=== PATIENT | female | born 1955 | race Caucasian/White ===

== ENCOUNTER 2020-10-01 10:41 | Inpatient (IN) | payer OTHER ==
[~2020-10-01] VITALS: Ht 165.1 cm; Wt 72.6 kg
[2020-10-01] MEDS ORDERED: WELLBUTRIN XL300 M1 PO (22:27)
[2020-10-01] MEDS ORDERED: LANSOPRAZOLE30 MG PO (22:28)
[2020-10-01] MEDS ORDERED: AMLODIPINE BESYL5 MG PO (22:28)
[2020-10-01] MEDS ORDERED: TRAMADOL HCL50 MG PO (22:30)
[2020-10-01] MEDS ORDERED: PLAVIX 75 MG TA75 MG PO (22:35)
[2020-10-01] MEDS ORDERED: VITAMIN D 3 (22:35)
[2020-10-01] MEDS ORDERED: ALLERGY RELIEF25 M1 PO (22:36)
[2020-10-01] MEDS ORDERED: ZINC50 M2 PO (22:37)
[2020-10-01] MEDS ORDERED: CALCIUM 600 +1 EA13 PO (22:38)
[2020-10-01] MEDS ORDERED: ZOFRAN 4 MG TAB4 MG PO (22:39)
[2020-10-01] MEDS ORDERED: TRIAMTERENE-HC1 EAC1 PO (22:40)
[2020-10-01] MEDS ORDERED: MELOXICAM15 MG PO (22:41)
[2020-10-01] MEDS ORDERED: FLUTICASONE PROPIONA (22:44)
[2020-10-02 09:13] LABS: HEMOGLOBIN 11.9 gm/dl (12.3-15.3); RED BLOOD COUNT 3.87 M/UL (4.00-5.10); WHITE BLOOD COUNT 10.3 K/UL (4.5-11.0)
[2020-10-03 06:20] LABS: HEMOGLOBIN 12.1 gm/dl (12.3-15.3); RED BLOOD COUNT 3.99 M/UL (4.00-5.10)
[2020-10-03 06:21] LABS: WHITE BLOOD COUNT 6.1 K/UL (4.5-11.0)
[2020-10-03 07:05] LABS: BUN/CREATININE RATIO 13 (0-10)
[2020-10-03] MEDS ORDERED: KEPPRA 500 MG500 MG PO (11:10)
[2020-10-03] MEDS ORDERED: ASPIRIN EC81 MG PO (11:10)
== END 2020-10-03 17:32 | disposition home or self-care (01) | DRG 92 ==
LOC: MED SURG 4 22:07
PROVIDERS: Internal Medicine; ADMIT Hospitalist
PROC: 4A00X4Z Measurement of Central Nervous Electrical Activity, External Approach (ICD-10-PCS; principal; 2020-10-02)
DX: Q04.8 Other specified congenital malformations of brain (principal); J98.11 Atelectasis; E87.2 Acidosis; R56.9 Unspecified convulsions; Z96.643 Presence of artificial hip joint, bilateral; I10 Essential (primary) hypertension; F39 Unspecified mood [affective] disorder; E87.6 Hypokalemia; M19.90 Unspecified osteoarthritis, unspecified site; Z90.49 Acquired absence of other specified parts of digestive tract; Z90.710 Acquired absence of both cervix and uterus; Z83.3 Family history of diabetes mellitus; Z82.49 Family history of ischemic heart disease and other diseases of the circulatory system
CPT/HCPCS: 36415; 70553; 71045; 80048; 83605; 83880; 84132; 85027; 93005; 95819; A9577; J1953

== ENCOUNTER → 2020-10-08 | Outpatient (CLI) | payer OTHER ==
[~2020-10-08] MED LIST: ALLERGY RELIEF25 M1 PO; AMLODIPINE BESYL5 MG PO; ASPIRIN EC81 MG PO; CALCIUM 600 +1 EA13 PO; FLUTICASONE PROPIONA; KEPPRA 500 MG500 MG PO; LANSOPRAZOLE30 MG PO; MELOXICAM15 MG PO; PLAVIX 75 MG TA75 MG PO; TRAMADOL HCL50 MG PO; TRIAMTERENE-HC1 EAC1 PO; VITAMIN D 3; WELLBUTRIN XL300 M1 PO; ZINC50 M2 PO; ZOFRAN 4 MG TAB4 MG PO
[2020-10-08 10:25] LABS: BUN/CREATININE RATIO 19 (0-10)
== END ==
LOC: LAB 09:48
PROVIDERS: Internal Medicine
DX: E87.5 Hyperkalemia (principal)
CPT/HCPCS: 36415; 80048; 83735